=== PATIENT | female | born 1985 | race Caucasian/White ===

== ENCOUNTER 2020-12-26 12:26 | Emergency (ER) | payer OTHER, SELFPAY ==
[2020-12-26 12:44] VITALS: BP 160/94; PULSE 94; RESP 20; TEMP 36.6; O2SAT 98
--- OUTSIDE RECORDS SUMMARY | 2020-12-26 12:44 | XMS_ITS | Continuity of Care Document ---
:1985 Author Organization [employer] Address [address] [place] [address] Phone Care Team Providers Name Role Phone Sameera Ceja MA Unavailable Unavailable Allergies, Adverse Reactions, Alerts Substance Reaction Status Criticality FENTANYL HCL Active No Information acetaminophen Active No Information OXYCODONE HCL Active No Information Medications Medication Instructions Dosage Effective Dates Status Comment s (start - stop) gabapentin 100 mg take 1 capsule by 100 MG - Active capsule oral route 3 times every day Cymbalta 60 mg take 1 capsule by 60 MG - Active capsule,delayed oral route every day release buspirone 15 mg tablet take 1 tablet by oral 15 MG - Ac tive route 2 times every day atorvastatin 40 mg take 1 tablet by oral 40 MG - Active tablet route every day Protonix 40 mg take 1 tablet by oral 40 MG - Active tablet,delayed release route every day promethazine 25 mg take 1 tablet by oral 25 MG - Active tablet route every 4 - 6 hours as needed baclofen 10 mg tablet take 1 tablet by oral 10 MG - Act radha route 3 times every day levothyroxine 125 mcg take 1 capsule by 125 MCG - Active capsule oral route every day ferrous sulfate 325 mg take 1 tablet by oral 325 MG - Ac tive (65 mg iron) tablet route every day trazodone 100 mg take 1 tablet by oral 100 MG - Active tablet route 2 times every day after meals albuterol sulfate HFA inhale 2 puff by 180 MCG - Active 90 mcg/actuation inhalation route aerosol inhaler every 4 - 6 hours as needed Advance Directives Directive Yes / No Effective Date File Name No Information Encounters Encounter Practice Location Reason(s) Diagnoses Date Provider Provide rs Description For Visit Copied on [facility]counter [facility] [place], [place] [id number], [id number]. tel:[phone] tel:[phone] No [facility] medical Information -2019 ng [address] (chief [place]. Central complaint) [address], [place], [id number], [id number], [place] tel:[phone] tel:[phone] Family History Family Member Type Diagnosis Age At Onset Problem Family history of Cancer, breast (Cause Of ) 46 Payers Payer name Insurance type Covered democrat ID Authorization(s ) [facility] [id number] Social History Type Description Quantity Date Captured Comments Alcohol Use Details Unknown Caffeine Use Details Unknown Tobacco Use Status No Information Smoking Status No Information Sex Female Chief Complaint And Reason For Visit No Information Plan Of Treatment Date Type Action Status No Information History Of Present Illness Encounter Date Complaint History Of Present I llness general medical exam The symptoms began 1 day ago and generally lasts 1 Day. The symptoms are reported as being mild. The symptoms occur d aily. She states the symptoms are chronic and are of new onset. Patient was recently discharged from the hospital, and thought this appoint ment was for behavior health. She already has a PC P which she is pleased with and does not want to change.Will cancel this visit Instructions Date Instruction Additional Informati on No Information Assessments Type Assessment Date No Information
--- NOTE | 2020-12-26 12:51 | ED.GENADUL_ITS ---
Discharge Plan Disposition Patient Disposition: HOME Condition: Good Discharge Details Clinical Impression: Abdominal pain Primary Care Provider: Unknown,Unknown ED Provider: Lupe Hernandez Home Meds and New Rx's Prescriptions: New ondansetron 4 mg tablet,disintegrating 4 mg PO Q6H PRN (Reason: nausea and vomiting) Qty: 10 RF: 0 Continued atorvastatin 40 mg Tablet 40 mg PO QHS RF: 0 acetaminophen 325 mg Tablet 650 mg PO PRN PRNRF: 0 trazodone 100 mg Tablet 200 mg PO QHS RF: 0 baclofen 10 mg Tablet 10 mg PO TID PRNRF: 0 pantoprazole 40 mg Tablet,Delayed Release (Dr/Ec) 40 mg PO DAILY RF: 0 ferrous sulfate [iron] 325 mg (65 mg iron) Tablet 325 mg PO DAILY RF: 0 promethazine 25 mg Tablet 25 mg PO Q6H PRNRF: 0 ibuprofen 400 mg Tablet 400 mg PO Q6H PRNRF: 0 duloxetine [Cymbalta] 20 mg Capsule,Delayed Release(Dr/Ec) 20 mg PO HS RF: 0 Discharge Instructions Instructions: Abdominal Pain (ED) Additional Instructions: Labs and imaging are reassuring here today. There does not appear to be any acute surgical cause of your belly pain. This may be muscular or viral etiology. Please continue to encourage water intake. Tylenol and/or ibuprofen as needed for discomfort. You may use the Zofran as prescribed for any recurrence of your nausea or vomiting. This prescription sent to your pharmacy. Referral for primary care has been sent. He may also call women's wellness to discuss follow-up for gynecological care. Number listed below. If you develop any new or worsening symptoms to seek care urgently once again. Referrals: Haven Guerrero MD [ [facility] STAFF PHYSICIAN] - Discharge Data Discharge Date/Time-TO BE ENTERED AT DEPARTURE: 12/26/20 15:25 Medical Decision Making Patient is a pleasant 35-year-old female with past medical history pertinent for hiatal hernia, hypercholesterolemia, hypothyroidism, insomnia. Presenting today for 3weeks lower abdominal pain. States the pain initially was very intermittent. However, pain greatly increasing over the past 4 days. States it is more constant now. Feels like a hot poker stabbing me in the abdomen. Denies any fevers or chills. States that she did vomit x1 last night and associates this with the pain. Endorses nausea currently. States that she chronically has diarrhea associated with cholecystectomy. States that she has been eating more healthy diet has lost a total of 70 pounds purposefully over the past year. Reports that she has had dysuria and increased frequency but that this has only been present over the past 2 days. Denies any vaginal discharge, dyspareunia. On exam, patient appears non toxic. She appears uncomfortable. Lungs clear, normal cardiac exam. Abdomen signficant for lower abdominal discomfort, maximal along the extremes of the side. No peritoneal findings. No rebound tenderness. Discussed differential. She has had htis discomfort for several weeks, and she has no peritoneal findings, I have lower suspicion for surgical abdomen. However, as pain has increased, I do feel that imaging would be appropriate. Will obtain labs, CT scan and treat pain/nausea. Patient received fluids, tylenol and zofran. She reports feeling improved. Labs results reviewed with the patient, no signficant abnormality noted. Imaging reviewed by Dr. Mcclendon. He advised no acute abnormality. No free fluid. States that she may have recently ovulated and pain may be mittelschmerz. I discussed htis with the patient. She is questioning if htis could be endometriosis. She has not had pain like this historically. I advised that this cannot be seen on CT and that her symptoms have not been cyclical. She has had abnormal paps historically. Is due for one now, I advised she f/u with women's wellness and discuss this further at appointment. Advised that her symptoms could be d/t viral illness, muscular pain or other pathology but that there is no indication for further emergent care at this time. return precautions discussed. Will prescribe zofran for any recurrent nausea/vomiting. Discussed OTC and home remedies to help with discomfort. She is new to the area, asked that she f/u with PCP. I have asked care management to assist with helping ot establish. All of her questions and concerns were addressed, she is in agreement with this plan. HPI General Mode of arrival: ambulatory . Date/Time Provider Initiated Documentation: 12/26/20 12:51 . Limitations to Documentation: no limitations . Information obtained by: patient and RN notes reviewed . History of Present Illness 35 year old F presents to the emergency department with the chief complaint of abdominal pain, described as severe, with intensity rated at 8. Quality is described as burning, and is localized to the abdomen. Patient reports no radiation. Patient started experiencing this week(s) (3) and it has been constant (initially intermittent, constant x 4 days). No relieving factors improve symptom(s), No exacerbating factors reported . Patient notes loss of appetite and nausea/vomiting (vomited x 1 yesterday); denies chest pain, diaphoresis, fever/chills and shortness of breath. Patient did receive the following treatments prior to arrival, NSAID Related Data Home Medications Medication Instructions Recorded Confirmed acetaminophen 650 mg PO PRN PRN 12/26/20 12/26/20 atorvastatin 40 mg PO QHS 12/26/20 12/26/20 baclofen 10 mg PO TID PRN 12/26/20 12/26/20 duloxetine [Cymbalta] 20 mg PO HS 12/26/20 12/26/20 ferrous sulfate [iron] 325 mg PO DAILY 12/26/20 12/26/20 ibuprofen 400 mg PO Q6H PRN 12/26/20 12/26/20 ondansetron 4 mg PO Q6H PRN #10 tab 12/26/20 pantoprazole 40 mg PO DAILY 12/26/20 12/26/20 promethazine 25 mg PO Q6H PRN 12/26/20 12/26/20 trazodone 200 mg PO QHS 12/26/20 12/26/20 Previous Rx's Medication Instructions Recorded ondansetron 4 mg PO Q6H PRN #10 tab 12/26/20 Allergies Allergy/AdvReac Type Severity Reaction Status Date / Time acetaminophen [From Percocet] AdvReac Itching Unverified 12/26/20 14:00 oxycodone [From Percocet] AdvReac Itching Unverified 12/26/20 12:48 General Stated Complaint: Abd Prob DARLENE: 3 Review of Systems Constitutional Constitutional: Reports as per HPI, Denies chills, Denies fatigue, Denies fever(s) and Denies headache(s) ENT Ears, Nose, Mouth, and Throat: Denies headache(s) Cardiovascular Cardiovascular: Reports as per HPI, Denies chest pain and Denies dyspnea Respiratory Respiratory: Reports as per HPI, Denies cough and Denies dyspnea Gastrointestinal Gastrointestinal: Reports as per HPI Musculoskeletal Musculoskeletal: Reports as per HPI and Denies back pain Integumentary/Breasts Skin/Breast: Reports as per HPI and Denies rash Neurologic Neurologic: Reports as per HPI and Denies headache(s) Endocrine Endocrine: Denies fatigue [facility] Medical History Hiatal hernia Hypercholesteremia Hypothyroidism Insomnia Pinched nerve Surgical History H/O tubal ligation H/O umbilical hernia repair Hx of cholecystectomy Social History Smoking/Tobacco Use Status: Never Smoking risk assessment performed?: Yes Alcohol Intake: never Drug use: Occasionally Substance use type: marijuana Do you feel safe at home: Yes Do you feel safe in your relationship?: Yes Exam Const General: cooperative, healthy appearing, comfortable, no acute distress and well developed Nutritional Appearance: well nourished and obese Orientation: alert and awake HENIN Head: normal to inspection Mouth: moist mucous membranes Resp Effort & Inspection: normal respiratory effort, able to speak in complete sentences and no respiratory distress Auscultation: clear to auscultation bilaterally, no rales, no rhonchi and no wheezes Cardio Rate: regular rate Rhythm: regular rhythm Heart Sounds: S1 normal and S2 normal GI Inspection: normal to inspection, no edema, non-distended and no visible herniation Palpation: soft, no hepatosplenomegaly, not firm, no guarding, not rigid and tender in the LLQ and in the RLQ; with no rebound tenderness Percussion: normal to percussion Auscultation: normal bowel sounds Back/Spine/Pelvis Back: no CVA tenderness Skin General skin exam: no rashes or lesions noted Trauma: no lacerations or abrasions Neuro General: patient alert and patient awake Cognition: normal cognition Speech: speech normal Gait: normal gait Psych Appearance: grossly normal and well kempt Mental Status: mental status grossly normal Speech and Movement: speech and movement normal Course Vital Signs Vital signs: Vital Signs Temperature 36.6 C 12/26/20 12:44 Pulse 94 H 12/26/20 12:44 Respiratory Rate 20 12/26/20 12:44 Blood Pressure 160/94 H 12/26/20 12:44 Pulse Oximetry 98 12/26/20 12:44 Temperature 36.6 C 12/26/20 12:44 Temperature Source Skin 12/26/20 12:44 Pulse 94 H 12/26/20 12:44 Respiratory Rate 20 12/26/20 12:44 Blood Pressure 160/94 H 12/26/20 12:44 Blood Pressure Position Sitting 12/26/20 12:44 Pulse Oximetry 98 12/26/20 12:44 Oxygen Delivery Method Room Air 12/26/20 12:44 Oxygen Flow Rate 0 12/26/20 12:44 Pain Level 8 12/26/20 12:44
[2020-12-26 13:17] LABS: Bilirubin Negative (Negative); Blood Negative (Negative); Clarity Sl Cloudy (Clear); Glucose Negative (Negative); Ketones Negative (Negative); Leukocyte Esterase Negative (Negative); Nitrite Negative (Negative); Specific Gravity 1.025 (1.005-1.025); Urobilinogen 0.2 EU/dL (Up TO 0.2); pH 7.5 (5-8)
[2020-12-26] MEDS: Normal Saline 1,000 ML 1000 ML IV (13:19)
[2020-12-26 13:24] LABS: Abs Immature Grans 0.07 10^3/uL (0.0-0.06); Absolute Basophil Count 0.03 10^3/uL (0.0-0.2); Absolute Eosinophil Count 0.55 10^3/uL (0.0-0.7); Absolute Lymphocyte Count 1.96 10^3/uL (1.2-3.4); Absolute Neutrophil Count 5.75 10^3/uL (1.2-6.7); Basophils % 0.3; Eosinophils % 6.1; HCT 39.6 % (36.0-46.0); HGB 13.1 g/dL (11.2-15.7); Immature Grans % 0.8; Lymphocytes % 21.9; MCHC 33.1 % (32.0-36.0); MCV 87.8 fL (80-95); MPV 8.9 fL (8.0-11.0); Monocytes % 6.7; Neutrophils % 64.2; Nucleated RBC 0 %; Platelet Count 258 10^3/uL (130-400); RBC 4.51 10^6/uL (3.93-5.22); RDW 13.4 % (11.7-14.6); WBC 8.96 10^3/uL (4.4-10.8)
[2020-12-26 13:37] LABS: ALT 44 U/L (14-59); AST 20 U/L (15-37); Alkaline Phosphatase 87 U/L (46-116); BUN 16 mg/dL (7-18); Bilirubin, Total 0.4 mg/dL (0.2-1.0); CREATININE 0.9 mg/dL (0.55-1.02); Calcium 8.4 mg/dL (8.5-10.1); Chloride 106 mmol/L (98-107); Glucose 129 mg/dL (74-106); Lipase 97 U/L (73-393); Magnesium 1.9 mg/dL (1.8-2.4); Potassium 3.5 mmol/L (3.5-5.1); Sodium 140 mmol/L (136-145); Total Protein 6.6 g/dL (6.4-8.2)
--- NOTE | 2020-12-26 14:38 | DI.CT_ITS ---
Exam(s) CT ABDOMEN PELVIS W EXAM: CT ABDOMEN PELVIS W INDICATION: lower quadrant pain. COMPARISON: No exams were available for comparison TECHNIQUE: FINDINGS: CT examination of the abdomen and pelvis was performed with a bolus infusion of 100 cc of Omnipaque 3 50. Images obtained through the lung bases are unremarkable. There is a large hiatal hernia. The liver is unremarkable in appearance. Gallbladder and bile ducts are CT normal. Pancreas appears normal. Spleen is unremarkable in appearance. Adrenals appear normal. There are multiple bilateral nonobstructing renal calculi. There is no renal mass or hydronephrosis. There is no ureterolithiasis. The Urinary bladder unremarkable. Abdominal aorta is of normal diameter and no major vascular abnormality is seen. There is a small fat containing umbilical hernia. No abdominal or pelvic adenopathy. There appears to been prior bilateral tubal ligation. There is an apparent corpus luteum on the left . Unremarkable right ovary by CT criteria. There is no gross free pelvic fluid. Uterus is unremark able by CT criteria. Appendix is normal. No evidence of diverticulitis or bowel obstruction. IMPRESSION: No evidence of acute intra-abdominal process. RADIATION DOSE DELIVERED: 1,459mGy.cm Total DLP 1,459mGy.cm Total DLP RADIATION OPTIMIZATION: All CT scans at this facility use at least one of these dose optimization te chniques: automated exposure control; mA and/or kV adjustment per patient size (includes targeted exa ms where dose is matched to clinical indication); or iterative reconstruction.
[2020-12-26 14:39] VITALS: BP 133/76; PULSE 96; RESP 18; TEMP 36.7; O2SAT 97
[2020-12-26] MEDS: Normal Saline - Diluent 50 ML VIAL IV (14:39)
[2020-12-26] MEDS: Omnipaque 350 MG/ML 100 ML BTL IJ (14:40)
[2020-12-26] MEDS: Ondansetron 4 MG/2 ML VIAL IVP (14:47)
[2020-12-26] MEDS: ACETAMINOPHEN 1,000 MG/100 ML BTL 400 MG IVPB (14:47)
--- NOTE | 2020-12-26 14:56 | NUR.NOTE ---
Referral to Care Management to establish pcp in 1-2 wks for abd pain.Nursing Note:
== END 2020-12-26 15:25 | disposition home or self-care (01) ==
PROVIDERS: Emergency Provider Physician Assistant
DX: R10.30 Lower abdominal pain, unspecified (principal); R11.2 Nausea with vomiting, unspecified
CPT/HCPCS: 36415; 80053; 81025; 83690; 96361; 96365; 96375; 99285; 74177; 81003; 83735; 85025; 99284; J0131; J2405; J3490